=== PATIENT | male | born 1970 | race Caucasian/White ===

== ENCOUNTER 2019-06-15 07:52 | Inpatient (IN) ==
[2019-06-15] MEDS ORDERED: SODIUM CHLORIDE 0.9% 1,000 ML IV STA (08:18)
[2019-06-15] MEDS ORDERED: HYDROmorphone 2 MG/1 ML VIAL IV STA (08:19)
[2019-06-15] MEDS ORDERED: ONDANSETRON 4 MG/2 ML VIAL IV STA (08:19)
[2019-06-15 08:44] LABS: Basophils % 0.4 % (0.0-0.8); Eosinophils # 0.3 10*3/uL (0.0-0.87); Eosinophils % 3.2 % (0.00-10.9); Hemoglobin 15.4 GM/DL (14.0-18.0); Immature Granulocytes % 0.5 %; Immature Granulocytes Absolute 0.05 #; Lymphocytes # 1.9 10*3/uL (1.4-4.0); Lymphocytes % 20.6 % (21.2-54.2); Mean Corpuscular HGB Conc 32.1 GM/DL (32-36); Mean Corpuscular Volume 87.9 FL (87-102); Monocytes % 6.9 % (1.7-12.7); Neutrophils % 68.4 % (38.7-73.9); Platelet Count 369 T/CUMM (130-400); Red Blood Count 5.46 MC/CUMM (3.8-5.5); Red Cell Distribution Width 14.7 % (9.3-17.3); White Blood Count 9.1 T/CUMM (4-12)
[2019-06-15] MEDS ORDERED: AMPICILLIN/SULBACTAM 3,000 MG in SODIUM CHLORIDE 0.9% 100 ML IV STA (08:49)
[2019-06-15] MEDS ORDERED: PANTOPRAZOLE 40 MG VIAL IV STA ×2 (08:50→09:21)
[2019-06-15 09:10] LABS: Alanine Aminotransferase 24 U/L (16-61); Albumin 3.4 G/DL (3.4-5.0); Alkaline Phosphatase 73 U/L (45-117); Aspartate Amino Transferase 14 U/L (0-37); Bilirubin,Total < 0.39 MG/DL (0.2-1.0); Blood Urea Nitrogen 11 MG/DL (7-18); Calcium 8.7 MG/DL (8.5-10.1); Estimated Glom Filtration Rate 66 ML/MIN; Glucose 102 MG/DL (74-106); Osmolality,Calculated 277.4 MOS/KG (273-304); Total Protein 7.5 G/DL (6.4-8.3)
[2019-06-15] MEDS ORDERED: cefOXitin 2,000 MG in SYRINGE 1 EACH IV ONE (09:19)
[2019-06-15] MEDS ORDERED: ACETAMINOPHEN 325 MG TABLET PO PRN (09:21)
[2019-06-15] MEDS ORDERED: ONDANSETRON 4 MG/2 ML VIAL IV PRN ×2 (09:21→14:07)
[2019-06-15] MEDS ORDERED: HYDROmorphone 2 MG/1 ML VIAL IV PRN (09:21)
[2019-06-15] MEDS ORDERED: ALBUTEROL/IPRATROPIUM 3 ML NEB RESP TX PRN (09:21)
[2019-06-15] MEDS ORDERED: POTASSIUM CHLORIDE RIDER 10 MEQ in PREMIX 1 EACH IV PRN (09:26)
[2019-06-15] MEDS ORDERED: LACTATED RINGERS 1,000 ML IV SCH (09:30)
[2019-06-15] MEDS ORDERED: SUGAMMADEX 200 MG/2 ML VIAL IV ONE (11:49)
[2019-06-15] MEDS ORDERED: LIDOCAINE 2% 5 ML VIAL ONE (12:05)
[2019-06-15] MEDS ORDERED: MIDAZOLAM 2 MG/2 ML VIAL ONE (12:05)
[2019-06-15] MEDS ORDERED: SEVOFLURANE 1 UNIT/15 MINUTE INH ONE (12:05)
[2019-06-15] MEDS ORDERED: propofoL 200 MG/20 ML VIAL IV ONE (12:05)
[2019-06-15] MEDS ORDERED: fentaNYL 100 MCG/2 ML VIAL ONE (12:05)
[2019-06-15] MEDS ORDERED: ACETAMINOPHEN 1,000 MG/100 ML VIAL IV ONE (12:06)
[2019-06-15] MEDS ORDERED: PHENYLEPHRINE 1 MG/10 ML SYRINGE IV ONE (12:06)
[2019-06-15] MEDS ORDERED: LACTATED RINGERS 1,000 ML IV ONE (12:06)
[2019-06-15] MEDS ORDERED: PHENYLEPHRINE 10 MG/1 ML VIAL IV ONE (12:06)
[2019-06-15] MEDS ORDERED: SODIUM CHLORIDE 0.9% 250 ML IV ONE (12:06)
[2019-06-15] MEDS ORDERED: ROCURONIUM 100 MG/10 ML VIAL IV ONE (12:06)
[2019-06-15] MEDS ORDERED: SUCCINYLCHOLINE 200 MG/10 ML VIAL ONE (12:06)
[2019-06-15] MEDS ORDERED: MEPERIDINE 25 MG/1 ML VIAL ONE (12:17)
[2019-06-15] MEDS ORDERED: MEPERIDINE 25 MG/1 ML VIAL IV PRN (12:21)
[2019-06-15] MEDS ORDERED: INFLUENZA VIRUS VACCINE 0.5 ML SYRINGE IM ONE (13:04)
[2019-06-15] MEDS ORDERED: PNEUMOCOCCAL VACCINE (23 VALENT) 0.5 ML VIAL IM ONE (13:04)
[2019-06-15] MEDS ORDERED: PROMETHAZINE 25 MG/1 ML VIAL IM PRN (14:07)
[2019-06-15] MEDS ORDERED: cefOXitin 2,000 MG in SYRINGE 1 EACH IV SCH (15:00)
[2019-06-15 15:06] LABS: Basophils # 0.1 10*3/uL (0.0-0.2); Basophils % 0.3 % (0.0-0.8); Eosinophils % 0.1 % (0.00-10.9); Hematocrit 47.5 VOL% (42.0-52.0); Immature Granulocytes % 0.7 %; Immature Granulocytes Absolute 0.11 #; Lymphocytes # 1.1 10*3/uL (1.4-4.0); Lymphocytes % 6.6 % (21.2-54.2); Mean Corpuscular HGB Conc 31.6 GM/DL (32-36); Mean Corpuscular Volume 88.3 FL (87-102); Mean Platelet Volume 9.3 FL (9.6-12.0); Monocytes % 7.6 % (1.7-12.7); Neutrophils % 84.7 % (38.7-73.9); Platelet Count 354 T/CUMM (130-400); Red Blood Count 5.38 MC/CUMM (3.8-5.5); Red Cell Distribution Width 14.7 % (9.3-17.3)
[2019-06-15 15:37] LABS: Calcium 8.7 MG/DL (8.5-10.1); Osmolality,Calculated 278.4 MOS/KG (273-304)
[2019-06-15] MEDS: HYDROmorphone 2 MG/1 ML VIAL IV PRN (17:46)
[2019-06-15] MEDS: AMOXICILLIN 500 MG CAPSULE PO SCH ×2 (17:52→21:33)
[2019-06-15] MEDS: CLARITHROMYCIN 500 MG TABLET PO SCH ×2 (17:52→21:33)
[2019-06-15] MEDS: LACTATED RINGERS 1,000 ML IV SCH (17:53)
[2019-06-15] MEDS ORDERED: PANTOPRAZOLE 40 MG VIAL IV SCH (21:00)
[2019-06-15] MEDS: PANTOPRAZOLE 40 MG VIAL IV SCH ×2 (21:33→21:34)
[2019-06-15] MEDS: NICOTINE 21 MG/24 HR PATCH TRANSDERM SCH (21:59)
[2019-06-16] MEDS: HYDROmorphone 2 MG/1 ML VIAL IV PRN ×2 (00:02→04:43)
[2019-06-16] MEDS ORDERED: ENOXAPARIN 40 MG/0.4 ML SYRINGE SUBCUT SCH (05:00)
[2019-06-16] MEDS: LACTATED RINGERS 1,000 ML IV SCH ×2 (05:03→06:08)
[2019-06-16 05:41] LABS: Basophils % 0.3 % (0.0-0.8); Eosinophils # 0.3 10*3/uL (0.0-0.87); Eosinophils % 2.9 % (0.00-10.9); Hematocrit 41.7 VOL% (42.0-52.0); Hemoglobin 13.4 GM/DL (14.0-18.0); Immature Granulocytes % 0.3 %; Immature Granulocytes Absolute 0.03 #; Lymphocytes # 1.6 10*3/uL (1.4-4.0); Lymphocytes % 15.1 % (21.2-54.2); Mean Corpuscular HGB Conc 32.1 GM/DL (32-36); Mean Corpuscular Volume 87.6 FL (87-102); Monocytes % 9.2 % (1.7-12.7); Neutrophils % 72.2 % (38.7-73.9); Platelet Count 303 T/CUMM (130-400); Red Blood Count 4.76 MC/CUMM (3.8-5.5); Red Cell Distribution Width 14.6 % (9.3-17.3); White Blood Count 10.4 T/CUMM (4-12)
[2019-06-16 06:13] LABS: Calcium 8.7 MG/DL (8.5-10.1); Osmolality,Calculated 271.8 MOS/KG (273-304)
[2019-06-16] MEDS: CLARITHROMYCIN 500 MG TABLET PO SCH (08:36)
[2019-06-16] MEDS: NICOTINE 21 MG/24 HR PATCH TRANSDERM SCH (08:37)
[2019-06-16] MEDS ORDERED: PANTOPRAZOLE 40 MG TABLET PO SCH (09:00)
[2019-06-16] MEDS ORDERED: AMOXICILLIN 500 MG CAPSULE PO SCH (09:00)
[2019-06-16 16:46] VITALS: BP 130/76
== END 2019-06-16 17:15 | disposition home or self-care (01) | DRG 326 ==
LOC: EDUNIT# → EDBD → N.ED 07:52 → N.EDINP 09:21 → N.3E 09:48
PROVIDERS: ADMIT Surgery; ATTEND Surgery